=== PATIENT | male | born 1935 | race Caucasian/White ===

== ENCOUNTER 2017-12-07 11:43 | Inpatient (IN) | payer OTHER ==
[2017-12-07 13:54] VITALS: BMI 27.8
--- NOTE | 2017-12-07 15:37 | CON.CARD ---
Consult Consult Specialty:: Cardiology Referred by:: Admission to Hospitalist service Reason for Consultation:: Hypertensive urgency and atrial flutter - History of Present Illness Chief Complaint: Management of hypertensive urgency History of Present Illness: Patient is an 82 year old male seen in the office for atrial flutter with RVR, in addition HTN. He was started on Metoprolol Tartrate, Eliquis and Losartan and eventually started on Amiodarone prior to scheduling him for PATRICE and synchronized cardioversion. He presents today to Endo suite for above intervention, however; was found to be extremely hypertensive at 180/130 mmHg. Procedure was cancelled and he was recommended to be admitted for further management of blood pressure and to reschedule cardioversion with PATRICE once blood pressure is stabilized. He complains of mild shortness of breath according to his . He denies chest pain or palpitations. He denies paroxysmal nocturnal dyspnea or orthopnea. He denies fever or chills. He denies nausea, vomiting, diarrhea or abdominal pain. He denies headache or lightheadedness. TTE in the office revealed moderately reduced LV systolic function (LVEF 35-40%), small to moderate pericardial effusion, mild LVH, severe LAD, moderate RAD, mildly dilated ascending aorta, mild to moderate MR, moderate TR, moderate pulmonary HTN. - History Source History Provided By: Patient, Medical Record Limitations to Obtaining History: No Limitations - Past Medical History Cardio/Vascular: Yes: AFIB (atrial flutter), HTN, Pulmonary Hypertension, Other (LV systolic dysfunction) - Past Surgical History Additional Surgical History: Rotator cuff surgery, shoulder surgery - Alcohol/Substance Use Hx Alcohol Use: Yes (social) - Smoking History Smoking history: Never smoked Home Medications - Allergies Allergies/Adverse Reactions: Allergies Allergy/AdvReac Type Severity Reaction Status Date / Time No Known Allergies Allergy Verified 12/07/17 13:58 - Home Medications Home Medications: Ambulatory Orders Amiodarone HCl 200 mg PO BID 12/07/17 Apixaban [Eliquis] 5 mg PO BID 12/07/17 Losartan Potassium 25 mg PO DAILY 12/07/17 Metoprolol Tartrate 100 mg PO BID 12/07/17 Family Disease History - Family Disease History Other Family History: Malignant neoplasm in urinary bladder Review of Systems - Review of Systems Constitutional: denies: Chills, Fever Cardiovascular: reports: Palpitations, Shortness of Breath. denies: Chest Pain Respiratory: reports: SOB. denies: Cough, Hemoptysis, Orthopnea, PND, SOB on Exertion Gastrointestinal: denies: Abdominal Pain, Constipation, Diarrhea, Melena, Nausea , Rectal Bleeding, Vomiting Musculoskeletal: denies: Joint Pain Neurological: denies: Dizziness, Headache, Seizure, Syncope Vital Signs: Vital Signs Temperature 98.4 F 12/07/17 12:36 Pulse Rate 108 H 12/07/17 12:36 Respiratory Rate 15 12/07/17 12:36 Blood Pressure 180/130 12/07/17 12:36 O2 Sat by Pulse Oximetry (%) 97 12/07/17 12:36 Eyes: Yes: PERRL HENT: Yes: Atraumatic Neck: Yes: Supple Respiratory: Yes: CTA Bilaterally Gastrointestinal: Yes: Normal Bowel Sounds, Soft. No: Tenderness Cardiovascular: Yes: Pulse Irregular JVD: No Carotid Bruit: No PMI: Non-Displaced Heart Sounds: Yes: S1, S2. No: Gallop Murmur: Yes: Systolic Murmur, Grade 1 Edema: No - Other Data Atrial flutter with RVR Echo: Other (TTE done in the office. See HPI) Problem List - Problems (1) Atrial flutter Code(s): I48.92 - UNSPECIFIED ATRIAL FLUTTER (2) Hypertensive urgency Code(s): I16.0 - HYPERTENSIVE URGENCY (3) Left ventricular systolic dysfunction Code(s): I51.9 - HEART DISEASE, UNSPECIFIED (4) Pericardial effusion Code(s): I31.3 - PERICARDIAL EFFUSION (NONINFLAMMATORY) (5) Mitral valve regurgitation Code(s): I34.0 - NONRHEUMATIC MITRAL (VALVE) INSUFFICIENCY (6) Tricuspid valve regurgitation Code(s): I07.1 - RHEUMATIC TRICUSPID INSUFFICIENCY (7) Pulmonary hypertension Code(s): I27.20 - PULMONARY HYPERTENSION, UNSPECIFIED Assessment/Plan 1. Atrial flutter with RVR 2. LV systolic dysfunction - tachycardia mediated, but CAD needs to be ruled out 3. HTN - urgency 4. Pulmonary HTN 5. Mitral valve and tricuspid valve regurgitation 6. Pericardial effusion, etiology unclear, possibly inflammatory PLAN: 1. Continue Metoprolol Tartrate 100 BID 2. Increase Losartan to 100 mg once a day 3. Continue Eliquis 5 BID 4. Continue Amiodarone 200 BID and then eventually once a day 5. Reschedule PATRICE and synchronized cardioversion tentatively tomorrow once BP is better controlled. Keep NPO 6. Eventually will need further cardiac work up including nuclear MPI +/- cardiac catheterization if LV systolic function does not improve with zoroastrian of sinus rhythm. All these can be done as outpatient. Further plans are to follow. Discussed with Dr. Darnell Gonzalez (resident) Ghulam Ramirez MD
[2017-12-07] MEDS ORDERED: LOSARTAN POTASSIUM 50 MG TABLET (FP) PO ONE (16:27)
[2017-12-07] MEDS ORDERED: METOPROLOL TARTRATE 5 MG/5 ML VIAL IVPUSH PRN ×3 (16:29→18:05)
[2017-12-07] MEDS ORDERED: METOPROLOL TARTRATE 5 MG/5 ML VIAL IVPUSH ONE (16:45)
--- NOTE | 2017-12-07 16:48 | HP ---
Admitting History and Physical - Primary Care Physician PCP: Dr. Dickens - Admission Chief Complaint: HTN History of Present Illness: 82 yo M h/o pulmonary HTN, aflutter, and HTN sent from Dr. Ramirez's office for cardioversion in the hospital. While in the hospital, patient was found to have elevated BP (180/130) with shortness of breath. Cardioversion was cancelled. Patient was found be in a-flutter with RVR in Dr. Ramirez's office last week. He was started on metoprolol, eliquis and losartan and eventually amiodarone. ECHO done at office showed reduced LV function (EF 35-40%) with small to moderate pericardial effusion, severe LAD, moderate RAD, moderate MR, TR and pulm. HTN. Denies chest pain, dizziness, n/v, exertional dyspnea, orthopnea, diarrhea, constipation, urinary symptom. History Source: Patient - Past Medical History Cardiovascular: Yes: AFIB (atrial flutter), HTN, Pulmonary Hypertension, Other ( LV systolic dysfunction) - Smoking History Smoking history: Never smoked - Alcohol/Substance Use Hx Alcohol Use: Yes (social) Home Medications - Allergies Allergies/Adverse Reactions: Allergies Allergy/AdvReac Type Severity Reaction Status Date / Time No Known Allergies Allergy Verified 12/07/17 13:58 - Home Medications Home Medications: Ambulatory Orders Amiodarone HCl 200 mg PO BID 12/07/17 Apixaban [Eliquis] 5 mg PO BID 12/07/17 Losartan Potassium 25 mg PO DAILY 12/07/17 Metoprolol Tartrate 100 mg PO BID 12/07/17 Family Disease History - Family Disease History Other Family History: Malignant neoplasm in urinary bladder Review of Systems - Review of Systems Constitutional: reports: No Symptoms Eyes: reports: No Symptoms HENT: reports: No Symptoms Neck: reports: No Symptoms Cardiovascular: reports: Palpitations, Shortness of Breath Respiratory: reports: No Symptoms Gastrointestinal: reports: No Symptoms Genitourinary: reports: No Symptoms Musculoskeletal: reports: No Symptoms Integumentary: reports: No Symptoms Neurological: reports: No Symptoms Physical Examination Vital Signs: Vital Signs Temperature 98.4 F 12/07/17 12:36 Pulse Rate 108 H 12/07/17 15:36 Respiratory Rate 20 12/07/17 15:36 Blood Pressure 178/117 12/07/17 15:36 O2 Sat by Pulse Oximetry (%) 95 12/07/17 15:36 Constitutional: Yes: Well Nourished, No Distress, Calm Eyes: Yes: Conjunctiva Clear, EOM Intact HENT: Yes: Atraumatic, Normocephalic Neck: Yes: Supple, Trachea Midline Cardiovascular: Yes: Tachycardia, Pulse Irregular, S1, S2. No: JVD Respiratory: Yes: CTA Bilaterally Gastrointestinal: Yes: Normal Bowel Sounds, Abdomen, Obese, Distention. No: Tenderness Edema: Yes Edema: LLE: 2+, RLE: 2+ Peripheral Pulses WNL: Yes Neurological: Yes: Alert, Oriented, Cran Nerves II-XII Intact Assessment/Plan 82 yo M admitted to telemetry for a-flutter with RVR and hypertensive urgency. A-flutter with RVR - cont. amiodarone 200mg BID, eliquis 5mg BID, and lopressor 100mg PO BID - will atempt cardioversion once BP stabilizes - cardiac monitoring - repeat EKG in the AM Hypertensive urgency - increase losartan 25mg to 100mg daily - cont. lopressor 100mg BID - lopressor 5mg IVPUSH PRN with parameters - stat labs dvt ppx: on eliquis Darnell Carlos [id number] [phone] Visit type - Emergency Visit Emergency Visit: No - New Patient This patient is new to me today: Yes Date on this admission: 12/08/17 - Critical Care Critical Care patient: No Hospitalist Screening - Colonoscopy Questionnaire Colonoscopy Questionnaire: Colonoscopy Questionnaire - Patient: 50 - 75 years old and never had a screening colonoscopy: Unknown History of colon or rectal polyps, or CA: Unknown History of IBD, Crohn's disease or UC: Unknown History of abdominal radiation therapy as a child: Unknown - Relative: 1 with colon or rectal CA, or polyps at age 60 or younger: Unknown Colon or rectal CA diagnosed at age 45 or younger: Unknown Multiple relatives with colon or rectal CA: Unknown - Outcome: Screening Result: Negative Screen
--- NOTE | 2017-12-07 18:08 | PN ---
Teaching Attending Note Name of Resident: Darnell Gonzalez ATTENDING PHYSICIAN STATEMENT I saw and evaluated the patient. I reviewed the resident's note and discussed the case with the resident. I agree with the resident's findings and plan as documented with exceptions below. SUBJECTIVE: 82 yom not seen a physician in 3 years, recently resumed follow up and newly diagnosed with HTN, Atrial flutter with RVR, started on metoprolol/eliquis/ amiodarone/losartan, was admitted for elective cardioversion today but noted with BP 180s/130s, so procedure held and to be reattempted with improved BP control. Patient reports recent exertional weakness/dyspnea but no chest pain. Reports increased dyspnea since started on amiodarone. Currently with no complaints. 12 point ROS done, neg except above. OBJECTIVE: Vital Signs Period Temp Pulse Resp BP Sys/Cardenas Pulse Ox Last 24 Hr 98.4 F 108-111 15-20 137-178/28-117 95-97 Intake & Output 12/04/17 12/05/17 12/06/17 12/07/17 23:59 23:59 23:59 23:59 Weight 180 lb GENERAL: Awake, alert, and fully oriented, in no acute distress. HEAD: Normal with no signs of trauma. EYES: Pupils equal, round and reactive to light, extraocular movements intact, sclera anicteric, conjunctiva clear. No lid lag. EARS, NOSE, THROAT: Ears normal, nares patent, oropharynx clear without exudates. Moist mucous membranes. NECK: soft, supple, no JVD LUNGS: Breath sounds equal, clear to auscultation bilaterally. No wheezes, and no crackles. No accessory muscle use. HEART: S1S2 irregular ABDOMEN: Soft, nontender, not distended, normoactive bowel sounds, no guarding, no rebound, no masses. No hepatomegaly or splenomegaly appreciated MUSCULOSKELETAL: Normal range of motion at all joints. No bony deformities or tenderness. No CVA tenderness. UPPER EXTREMITIES: 2+ pulses, warm, well-perfused. No cyanosis. No clubbing. No peripheral edema. LOWER EXTREMITIES: 2+ pulses, warm, well-perfused. No calf tenderness. No peripheral edema. NEUROLOGICAL: Cranial nerves II-XII intact. Normal speech. Gait deferred PSYCHIATRIC: Cooperative. Good eye contact. Appropriate mood and affect. SKIN: Warm, dry, normal turgor, no rashes or lesions noted, normal capillary refill. EKG Atrial flutter 1:1, ventricular rate 104 ASSESSMENT AND PLAN: 82 yom with Hypertensive urgency and atrial flutter with RVR. -Atrial flutter with RVR -Hypertensive urgency Plan: Cardiology consult dr. Ramirez. INcrease losartan to 100 mg daily. Continue metoprolol, amiodarone, eliquis. Metoprolol 5 mg IV prn for SBP > 170 or DBP > 110. Telemetry. Routine labs DVTPPX on eliquis NPO after midnight. Dispo pending BP improvement and cardioversion plans. Plan discussed with patient in detail,all questions answered. Total admit time 65 min.
[2017-12-07 19:57] LABS: HEMATOCRIT 44.7 % (35.4-49); HEMOGLOBIN 14.5 GM/dL (11.7-16.9); MCH 27.7 pg (25.7-33.7); MCHC 32.4 g/dl (32.0-35.9); MEAN CELL VOLUME 85.5 fl (80-96); MEAN PLT VOLUME 8.9 fl (7.5-11.1); PLATELET COUNT 212 K/MM3 (134-434); RBC 5.23 M/mm3 (4.00-5.60); RDW 15.3 % (11.9-15.9)
[2017-12-07] MEDS ORDERED: METOPROLOL TARTRATE 50 MG TABLET (FP) PO SCH ×2 (20:01→22:00)
[2017-12-07 20:14] LABS: INR 1.53 (0.82-1.09); PROTHROMBIN TIME (PATIENT) 17.3 SEC (9.7-13.0)
[2017-12-07 20:17] LABS: ACTIVATED PTT 35.1 SECONDS (25.2-36.5)
[2017-12-07 20:22] LABS: ALBUMIN 3.6 g/dl (3.4-5.0); ANION GAP 5 (8-16); BILIRUBIN,TOTAL 0.7 mg/dL (0.2-1.0); BLOOD UREA NITROGEN 26 mg/dL (7-18); CALCIUM 8.6 mg/dL (8.5-10.1); CHLORIDE 112 mmol/L (98-107); CO2 25 mmol/L (21-32); CREATININE 1.3 mg/dL (0.7-1.3); GLUCOSE,RANDOM 119 mg/dL (74-106); MAGNESIUM 2.2 mg/dL (1.8-2.4); PHOSPHOROUS 3.2 mg/dL (2.5-4.9); POTASSIUM 4.3 mmol/L (3.5-5.1); SGOT/AST 17 U/L (15-37); SGPT/ALT 35 U/L (12-78); SODIUM 142 mmol/L (136-145); TOT PROT 6.1 g/dl (6.4-8.2)
[2017-12-07 20:23] LABS: ALK PHOS 65 U/L (45-117)
[2017-12-07] MEDS: METOPROLOL TARTRATE 50 MG TABLET (FP) PO SCH (21:18)
[2017-12-07] MEDS: AMIODARONE HCL 200 MG TABLET (FP) PO SCH (21:18)
[2017-12-07] MEDS: APIXABAN 5 MG TABLET PO SCH (21:18)
[2017-12-07] MEDS: LOSARTAN POTASSIUM 50 MG TABLET (FP) PO SCH (21:19)
--- NOTE | 2017-12-07 21:42 | EKG ---
Test Reason : Blood Pressure : / mmHG Vent. Rate : 107 BPM Atrial Rate : 214 BPM P-R Int : 000 ms QRS Dur : 088 ms QT Int : 316 ms P-R-T Axes : 073 092 165 degrees QTc Int : 421 ms ATRIAL FLUTTER WITH 2:1 A-V CONDUCTION RIGHTWARD AXIS NONSPECIFIC ST AND T WAVE ABNORMALITY ABNORMAL ECG NO PREVIOUS ECGS AVAILABLE Confirmed by MD ZANDER, NATHAN ([id number]) on 12/07/2017 9:42:00 PM Referred By: Lakshmi HULL Confirmed By:NATHAN FERMIN MD
[2017-12-08 06:27] LABS: HEMATOCRIT 43.4 % (35.4-49); HEMOGLOBIN 14.4 GM/dL (11.7-16.9); MCH 28.3 pg (25.7-33.7); MCHC 33.1 g/dl (32.0-35.9); MEAN CELL VOLUME 85.5 fl (80-96); MEAN PLT VOLUME 8.8 fl (7.5-11.1); PLATELET COUNT 189 K/MM3 (134-434); RBC 5.08 M/mm3 (4.00-5.60); RDW 15.3 % (11.9-15.9); WHITE BLOOD COUNT 10.7 K/mm3 (4.0-10.0)
[2017-12-08 07:17] LABS: ALBUMIN 3.5 g/dl (3.4-5.0); ANION GAP 5 (8-16); BLOOD UREA NITROGEN 25 mg/dL (7-18); CALCIUM 8.7 mg/dL (8.5-10.1); CHLORIDE 108 mmol/L (98-107); CHOLESTEROL 147 mg/dL (50-200); CO2 28 mmol/L (21-32); CREATININE 1.3 mg/dL (0.7-1.3); GLUCOSE,RANDOM 96 mg/dL (74-106); MAGNESIUM 2.1 mg/dL (1.8-2.4); PHOSPHOROUS 3.3 mg/dL (2.5-4.9); POTASSIUM 4.7 mmol/L (3.5-5.1); SGOT/AST 19 U/L (15-37); SGPT/ALT 34 U/L (12-78); SODIUM 141 mmol/L (136-145); TRIGLYCERIDES 79 mg/dL (35-160)
[2017-12-08 07:19] LABS: ALK PHOS 64 U/L (45-117); BILIRUBIN,TOTAL 0.8 mg/dL (0.2-1.0); HDL CHOLESTEROL 37 mg/dL (40-60)
[2017-12-08] MEDS: LOSARTAN POTASSIUM 50 MG TABLET (FP) PO SCH (09:09)
[2017-12-08] MEDS: METOPROLOL TARTRATE 50 MG TABLET (FP) PO SCH ×2 (09:09→21:51)
--- NOTE | 2017-12-08 09:36 | PN ---
Progress Note, Physician History of Present Illness: BP improved, denies chest pain, dyspnea, palpitations. Await PATRICE-guided DCCV. - Current Medication List Current Medications: Active Medications Amiodarone HCl (Cordarone -) 200 mg PO BID [facility] Last Admin: 12/07/17 21:18 Dose: 200 mg Apixaban (Eliquis -) 5 mg PO BID [facility] Last Admin: 12/07/17 21:18 Dose: 5 mg Losartan Potassium (Cozaar -) 100 mg PO DAILY [facility] Last Admin: 12/08/17 09:09 Dose: 100 mg Metoprolol Tartrate (Lopressor -) 100 mg PO BID [facility] Last Admin: 12/08/17 09:09 Dose: 100 mg Metoprolol Tartrate (Lopressor Injection -) 5 mg IVPUSH Q4H PRN PRN Reason: HYPERTENSION Last Admin: 12/08/17 06:22 Dose: 5 mg - Objective Vital Signs: Vital Signs Temperature 97.8 F 12/08/17 06:00 Pulse Rate 108 H 12/08/17 06:22 Respiratory Rate 20 12/08/17 07:46 Blood Pressure 149/114 12/08/17 06:22 O2 Sat by Pulse Oximetry (%) 96 12/08/17 07:46 Constitutional: Yes: No Distress, Calm Neck: Yes: Supple Cardiovascular: Yes: Pulse Irregular, Murmur (1/6 SM) Respiratory: Yes: Regular, CTA Bilaterally Gastrointestinal: Yes: Normal Bowel Sounds, Soft Edema: No Labs: CBC, BMP 12/08/17 05:30 12/08/17 05:30 INR, PTT INR 1.53 (0.82-1.09) H 12/07/17 19:35 - ....Imaging EKG: Report Reviewed (Aflutter) Problem List - Problems (1) Chronic kidney disease Code(s): N18.9 - CHRONIC KIDNEY DISEASE, UNSPECIFIED Qualifiers: Chronic kidney disease stage: stage 2 (mild) Qualified Code(s): N18.2 - Chronic kidney disease, stage 2 (mild) (2) Atrial flutter Code(s): I48.92 - UNSPECIFIED ATRIAL FLUTTER Qualifiers: Atrial flutter type: atypical Qualified Code(s): I48.4 - Atypical atrial flutter (3) Hypertensive urgency Code(s): I16.0 - HYPERTENSIVE URGENCY (4) Left ventricular systolic dysfunction Code(s): I51.9 - HEART DISEASE, UNSPECIFIED (5) Mitral valve regurgitation Code(s): I34.0 - NONRHEUMATIC MITRAL (VALVE) INSUFFICIENCY Qualifiers: Cardiac valve disease etiology: nonrheumatic Qualified Code(s): I34.0 - Nonrheumatic mitral (valve) insufficiency (6) Pericardial effusion Code(s): I31.3 - PERICARDIAL EFFUSION (NONINFLAMMATORY) (7) Pulmonary hypertension Code(s): I27.20 - PULMONARY HYPERTENSION, UNSPECIFIED (8) Tricuspid valve regurgitation Code(s): I07.1 - RHEUMATIC TRICUSPID INSUFFICIENCY Qualifiers: Cardiac valve disease etiology: nonrheumatic Qualified Code(s): I36.1 - Nonrheumatic tricuspid (valve) insufficiency Assessment/Plan TTE in the office revealed moderately reduced LV systolic function (LVEF 35-40%) , small to moderate pericardial effusion, mild LVH, severe LAD, moderate RAD, mildly dilated ascending aorta, mild to moderate MR, moderate TR, moderate pulmonary HTN 1. Atrial flutter with RVR 2. LV systolic dysfunction - tachycardia mediated, but CAD needs to be ruled out 3. HTN - urgency improved 4. Pulmonary HTN 5. Mitral valve and tricuspid valve regurgitation 6. Pericardial effusion, etiology unclear, possibly inflammatory 7. CKD PLAN: 1. Continue Metoprolol Tartrate 100 BID 2. Continue Losartan 100 mg once a day 3. Continue Eliquis 5 BID 4. Continue Amiodarone 200 BID and then eventually once a day 5. Plan for PATRICE and synchronized cardioversion today as BP is better controlled. Keep NPO 6. Eventually will need further cardiac work up including nuclear MPI +/- cardiac catheterization if LV systolic function does not improve with denominational of sinus rhythm. All these can be done as outpatient.
--- NOTE | 2017-12-08 11:06 | EKG ---
Test Reason : Blood Pressure : / mmHG Vent. Rate : 109 BPM Atrial Rate : 218 BPM P-R Int : 000 ms QRS Dur : 090 ms QT Int : 316 ms P-R-T Axes : 078 096 162 degrees QTc Int : 425 ms ATRIAL FLUTTER WITH 2:1 A-V CONDUCTION RIGHTWARD AXIS ABNORMAL ECG WHEN COMPARED WITH ECG OF 07-DEC-2017 14:25, NO SIGNIFICANT CHANGE WAS FOUND Confirmed by LILA CONDON, JENS ([id number]) on 12/08/2017 11:06:01 AM Referred By: BRAYAN YU DR Confirmed By:JENS SHARP MD
--- NOTE | 2017-12-08 13:01 | PN ---
Teaching Attending Note Name of Resident: Johnathan Conteh ATTENDING PHYSICIAN STATEMENT I saw and evaluated the patient. I reviewed the resident's note and discussed the case with the resident. I agree with the resident's findings and plan as documented with exceptions below. SUBJECTIVE: Patient seen and examined. No new chest pain, dizziness, dyspnea, palpitations, headache or new concerns. OBJECTIVE: Vital Signs Period Temp Pulse Resp BP Sys/Cardenas Pulse Ox Last 24 Hr 97.4 F-98.9 F 104-113 18-20 137-178/91-117 95-96 Intake & Output 12/05/17 12/06/17 12/07/17 12/08/17 23:59 23:59 23:59 23:59 Weight 180 lb General: sitting in chair, no acute distress CVS;S1S2 tachycardic Chest: CTAB, no rales or wheezing Extremities: no edema Home Medications Medication Instructions Recorded Amiodarone HCl 200 mg PO BID 12/07/17 Apixaban [Eliquis] 5 mg PO BID 12/07/17 Losartan Potassium 25 mg PO DAILY 12/07/17 Metoprolol Tartrate 100 mg PO BID 12/07/17 Active Medications Amiodarone HCl (Cordarone -) 200 mg PO BID [facility] Last Admin: 12/07/17 21:18 Dose: 200 mg Apixaban (Eliquis -) 5 mg PO BID [facility] Last Admin: 12/07/17 21:18 Dose: 5 mg Losartan Potassium (Cozaar -) 100 mg PO DAILY [facility] Last Admin: 12/08/17 09:09 Dose: 100 mg Metoprolol Tartrate (Lopressor -) 100 mg PO BID [facility] Last Admin: 12/08/17 09:09 Dose: 100 mg Metoprolol Tartrate (Lopressor Injection -) 5 mg IVPUSH Q4H PRN PRN Reason: HYPERTENSION Last Admin: 12/08/17 06:22 Dose: 5 mg Laboratory Results - last 24 hr 12/07/17 12/07/17 12/07/17 19:35 19:35 19:35 WBC 11.0 H RBC 5.23 Hgb 14.5 Hct 44.7 MCV 85.5 MCH 27.7 MCHC 32.4 RDW 15.3 Plt Count 212 MPV 8.9 PT with INR 17.30 H INR 1.53 H PTT (Actin FS) 35.1 Sodium 142 Potassium 4.3 Chloride 112 H Carbon Dioxide 25 Anion Gap 5 L BUN 26 H Creatinine 1.3 Creat Clearance w eGFR 52.98 Random Glucose 119 H Calcium 8.6 Phosphorus 3.2 Magnesium 2.2 Total Bilirubin 0.7 AST 17 ALT 35 Alkaline Phosphatase 65 Total Protein 6.1 L Albumin 3.6 Triglycerides Cholesterol Total LDL Cholesterol HDL Cholesterol 12/08/17 12/08/17 05:30 05:30 WBC 10.7 H RBC 5.08 Hgb 14.4 Hct 43.4 MCV 85.5 MCH 28.3 MCHC 33.1 RDW 15.3 Plt Count 189 MPV 8.8 PT with INR INR PTT (Actin FS) Sodium 141 Potassium 4.7 Chloride 108 H Carbon Dioxide 28 Anion Gap 5 L BUN 25 H Creatinine 1.3 Creat Clearance w eGFR 52.98 Random Glucose 96 Calcium 8.7 Phosphorus 3.3 Magnesium 2.1 Total Bilirubin 0.8 AST 19 ALT 34 Alkaline Phosphatase 64 Total Protein 6.0 L Albumin 3.5 Triglycerides 79 Cholesterol 147 Total LDL Cholesterol 101 H HDL Cholesterol 37 L ASSESSMENT AND PLAN: 82 yom with Hypertensive urgency and atrial flutter with RVR. -Atrial flutter with RVR -Hypertensive urgency Plan: BP improved, continue losartan, metoprolol. Metoprolol IV prn. Cardiology consult noted. Awaiting PATRICE with DCCV. DVTPPX on eliquis Dispo pending DCCV and clinically course, likely in 24 hours if no concerns. Plan discussed with patient in detail,all questions answered.
[2017-12-08] MEDS ORDERED: LIDOCAINE VISCOUS 2% ORAL/TOP 20 ML UNIT-DOSE CUP ONE (13:12)
[2017-12-08] MEDS ORDERED: LIDOCAINE HCL/PF 2% SDV 5ML VIAL ONE (13:15)
[2017-12-08] MEDS ORDERED: ETOMIDATE 20 MG/10 ML AMPUL IVPUSH ONE (13:15)
[2017-12-08] MEDS ORDERED: PROPOFOL 20 ML ONE (13:15)
[2017-12-08] MEDS ORDERED: LIDOCAINE VISCOUS 2% ORAL/TOP 20 ML UNIT-DOSE CUP MM ONE (13:41)
--- NOTE | 2017-12-08 14:25 | ECHO ---
Name: BINA, PHAM Exam:Transesophageal Echocardiogram Study Date: 12/08/2017 01:38 PM Reason For Study: Source of Emboli Height: 67 in Weight: 180 lb BSA: 1.9 m2 Procedure: A 2D transesophageal echocardiogram with Doppler and color flow Doppler was performed. Informed conse nt for Transesophageal Echocardiogram, and use of a contrast agent as needed, was obtained prior to the proc edure. The patient was brought to the endoscopy suite in a fasting state. An intravenous line was placed. A topical anesthetic agent was used for oropharangeal anesthesia. A bite block was inserted. A multifrequency, multiplane transesopheageal echocardiographic endoscope was inserted and manipulated in the standard fashion to achieve multiplane views. The usual views were obtained; basal, mid-esophageal, transgastric and a ortic views. The patient's vital signs, including blood pressure, heart rate, pulse oximetry and cardiac rh ythm were monitored throughout the procedure and remained stable. The patient tolerated the procedure well with out evidence of orophangeal or esophageal trauma. There were no complications. The patient was in atrial flutter during the exam. Left Ventricle The left ventricle is grossly normal size. Left ventricular systolic function is mild to moderately r educed. Ejection Fraction = 40-45%. There is mild to moderate global hypokinesis of the left ventricle. Atria The left atrium is moderately dilated. No thrombus is detected in the left atrial appendage. No left atrial mass or thrombus visualized. The right atrium is mild to moderately dilated. A patent foramen ovale i s present. Color doppler suggests left to right interatrial shunt. Injection of contrast documented an interatrial shunt. Mitral Valve There is mild mitral annular calcification. Probable moderate to severe mitral valve regurgitation wi th 2 jets, one central and the other eccentric hugging the anterior mitral valve leaflet along the interat rial septum. Pulmonary vein Doppler reveals blunted systolic flow. Tricuspid Valve The tricuspid valve is not well visualized, but is grossly normal. There is moderate tricuspid regurg itation. Aortic Valve The aortic valve is normal in structure and function. Mild aortic regurgitation. Pulmonic Valve The pulmonic valve is not well seen, but is grossly normal. There is no pulmonic valvular regurgitati on. Great Vessels Diffuse atherosclerotic plaques are seen in descending thoracic aorta and aortic arch. Pericardium/Pluera Small to moderate pericardial effusion, probably loculated. Interpretation Summary The left ventricle is grossly normal size. Left ventricular systolic function is mild to moderately reduced. Ejection Fraction = 40-45%. There is mild to moderate global hypokinesis of the left ventricle. The left atrium is moderately dilated. No thrombus is detected in the left atrial appendage. No left atrial mass or thrombus visualized. The right atrium is mild to moderately dilated. A patent foramen ovale is present. Color doppler suggests left to right interatrial shunt. Injection of contrast documented an interatrial shunt. There is mild mitral annular calcification. Probable moderate to severe mitral valve regurgitation with 2 jets, one central and the other eccentr ic hugging the anterior mitral valve leaflet along the interatrial septum. Pulmonary vein Doppler reveal s blunted systolic flow. There is moderate tricuspid regurgitation. Mild aortic regurgitation. Diffuse atherosclerotic plaques are seen in descending thoracic aorta and aortic arch Small to moderate pericardial effusion, probably loculated Proceed with synchronized cardioversion Ghulam Ramirez MD 12/08/2017 02:24 PM
[2017-12-08] MEDS: APIXABAN 5 MG TABLET PO SCH ×2 (15:19→21:51)
[2017-12-08] MEDS: AMIODARONE HCL 200 MG TABLET (FP) PO SCH (15:19)
--- NOTE | 2017-12-08 16:11 | EKG ---
Test Reason : Blood Pressure : / mmHG Vent. Rate : 057 BPM Atrial Rate : 057 BPM P-R Int : 146 ms QRS Dur : 088 ms QT Int : 472 ms P-R-T Axes : 075 097 125 degrees QTc Int : 459 ms SINUS BRADYCARDIA POSSIBLE LEFT ATRIAL ENLARGEMENT RIGHTWARD AXIS ABNORMAL ECG WHEN COMPARED WITH ECG OF 08-DEC-2017 08:44, SINUS RHYTHM HAS REPLACED ATRIAL FLUTTER VENT. RATE HAS DECREASED BY [address] NO LONGER DEPRESSED IN INFERIOR LEADS T WAVE INVERSION MORE EVIDENT IN ANTERIOR LEADS Confirmed by JENS SHARP MD ([id number]) on 12/08/2017 4:11:14 PM Referred By: PADILLA TREVINO Confirmed By:JENS SHARP MD
--- NOTE | 2017-12-08 17:22 | PN ---
Progress Note (short form) - Note Progress Note: PATRICE/synchronized cardioversion: Please see PATRICE report on chart Successful cardioversion to sinus with 120J. Patient tolerated procedure Continue current medication except Amiodarone to be reduced to 200 mg once a day. Losartan can be given 50 mg once a day. Continue Eliquis and Metoprolol. Patient may be discharged home and be followed as outpatient Ghulam Ramirez MD Problem List - Problems (1) Atrial flutter Code(s): I48.92 - UNSPECIFIED ATRIAL FLUTTER Qualifiers: Atrial flutter type: atypical Qualified Code(s): I48.4 - Atypical atrial flutter (2) Hypertensive urgency Code(s): I16.0 - HYPERTENSIVE URGENCY (3) Left ventricular systolic dysfunction Code(s): I51.9 - HEART DISEASE, UNSPECIFIED (4) Pericardial effusion Code(s): I31.3 - PERICARDIAL EFFUSION (NONINFLAMMATORY) (5) Mitral valve regurgitation Code(s): I34.0 - NONRHEUMATIC MITRAL (VALVE) INSUFFICIENCY Qualifiers: Cardiac valve disease etiology: nonrheumatic Qualified Code(s): I34.0 - Nonrheumatic mitral (valve) insufficiency (6) Tricuspid valve regurgitation Code(s): I07.1 - RHEUMATIC TRICUSPID INSUFFICIENCY Qualifiers: Cardiac valve disease etiology: nonrheumatic Qualified Code(s): I36.1 - Nonrheumatic tricuspid (valve) insufficiency (7) Pulmonary hypertension Code(s): I27.20 - PULMONARY HYPERTENSION, UNSPECIFIED
--- NOTE | 2017-12-08 19:07 | PN ---
Physical Exam: SUBJECTIVE: Patient seen and examined. Pt. had no acute events overnight. No complaints. OBJECTIVE: Vital Signs Period Temp Pulse Resp BP Sys/Cardenas Pulse Ox Last 24 Hr 97.2 F-98.8 F 57-111 12-21 112-152/62-114 96-100 GENERAL: The patient is awake, alert, and fully oriented, in no acute distress. LUNGS: Breath sounds equal, clear to auscultation bilaterally, no wheezes, no crackles, no accessory muscle use. HEART: fast rate and rhythm, S1, S2 without murmur, rub or gallop. ABDOMEN: Soft, nontender, nondistended, normoactive bowel sounds, no guarding EXTREMITIES:warm, well-perfused, no edema, no calf pain. PSYCH: Normal mood, normal affect. SKIN: Warm, dry, normal turgor Laboratory Results - last 24 hr 12/07/17 12/07/17 12/07/17 19:35 19:35 19:35 WBC 11.0 H RBC 5.23 Hgb 14.5 Hct 44.7 MCV 85.5 MCH 27.7 MCHC 32.4 RDW 15.3 Plt Count 212 MPV 8.9 PT with INR 17.30 H INR 1.53 H PTT (Actin FS) 35.1 Sodium 142 Potassium 4.3 Chloride 112 H Carbon Dioxide 25 Anion Gap 5 L BUN 26 H Creatinine 1.3 Creat Clearance w eGFR 52.98 Random Glucose 119 H Calcium 8.6 Phosphorus 3.2 Magnesium 2.2 Total Bilirubin 0.7 AST 17 ALT 35 Alkaline Phosphatase 65 Total Protein 6.1 L Albumin 3.6 Triglycerides Cholesterol Total LDL Cholesterol HDL Cholesterol 12/08/17 12/08/17 05:30 05:30 WBC 10.7 H RBC 5.08 Hgb 14.4 Hct 43.4 MCV 85.5 MCH 28.3 MCHC 33.1 RDW 15.3 Plt Count 189 MPV 8.8 PT with INR INR PTT (Actin FS) Sodium 141 Potassium 4.7 Chloride 108 H Carbon Dioxide 28 Anion Gap 5 L BUN 25 H Creatinine 1.3 Creat Clearance w eGFR 52.98 Random Glucose 96 Calcium 8.7 Phosphorus 3.3 Magnesium 2.1 Total Bilirubin 0.8 AST 19 ALT 34 Alkaline Phosphatase 64 Total Protein 6.0 L Albumin 3.5 Triglycerides 79 Cholesterol 147 Total LDL Cholesterol 101 H HDL Cholesterol 37 L Active Medications Current Medications Amiodarone HCl (Cordarone -) 200 mg PO DAILY [facility] Apixaban (Eliquis -) 5 mg PO BID [facility] Last Admin: 12/08/17 15:19 Dose: 5 mg Losartan Potassium (Cozaar -) 50 mg PO DAILY [facility] Metoprolol Tartrate (Lopressor -) 100 mg PO BID [facility] Last Admin: 12/08/17 09:09 Dose: 100 mg Metoprolol Tartrate (Lopressor Injection -) 5 mg IVPUSH Q4H PRN PRN Reason: HYPERTENSION Last Admin: 12/08/17 06:22 Dose: 5 mg PATRICE(12/08/17): Mod-severe MR, L->R intraatrial shunt d/t PFO, mod. TR, mild AR, No thrombus in atrial appendage. ASSESSMENT/PLAN: 82 yo M admitted to telemetry for a-flutter with RVR and hypertensive urgency. #A-flutter with RVR - cont. amiodarone 200mg BID, eliquis 5mg BID, and lopressor 100mg PO BID - Pt. underwent PATRICE and cardioversion (12/08/17) - succesful cardioversion. Pt. is in nsr - cardiac monitoring overnight #Hypertensive urgency - increase losartan 25mg to 100mg daily - cont. lopressor 100mg BID - lopressor 5mg IVPUSH PRN with parameters - resolved #Dvt ppx: on eliquis #Dispo -home pending successful night of NSRl Visit type - Emergency Visit Emergency Visit: Yes ED Registration Date: 12/07/17 Care time: The patient presented to the Emergency Department on the above date and was hospitalized for further evaluation of their emergent condition. - New Patient This patient is new to me today: Yes Date on this admission: 12/08/17 - Critical Care Critical Care patient: No - Discharge Referral Referred to [facility].C[facility] No
--- NOTE | 2017-12-09 05:17 | DS ---
Physical Exam: SUBJECTIVE: Patient seen and examined. No acute events overnight. No complaints other than IV site infiltration being a little swollen. OBJECTIVE: Vital Signs Period Temp Pulse Resp BP Sys/Cardenas Pulse Ox Last 24 Hr 96.7 F-97.9 F 57-108 12-21 112-149/62-114 95-100 PHYSICAL EXAM GENERAL: The patient is awake, alert, and fully oriented, walking around in no acute distress. LUNGS: Breath sounds equal, clear to auscultation bilaterally, no wheezes, no crackles, no accessory muscle use. HEART: Regular rate and rhythm, S1, S2 without murmur. ABDOMEN: Soft, nontender, nondistended, normoactive bowel sounds, no guarding, no rebound, no hepatosplenomegaly, no masses. EXTREMITIES: warm, well-perfused, no calf tenderness, no leg edema, mild tenderness around infiltration site on right hand.. NEUROLOGICAL: Normal speech PSYCH: Normal mood, normal affect. SKIN: Warm, dry, normal turgor LABS Laboratory Results - last 24 hr 12/08/17 12/08/17 05:30 05:30 WBC 10.7 H RBC 5.08 Hgb 14.4 Hct 43.4 MCV 85.5 MCH 28.3 MCHC 33.1 RDW 15.3 Plt Count 189 MPV 8.8 Sodium 141 Potassium 4.7 Chloride 108 H Carbon Dioxide 28 Anion Gap 5 L BUN 25 H Creatinine 1.3 Creat Clearance w eGFR 52.98 Random Glucose 96 Calcium 8.7 Phosphorus 3.3 Magnesium 2.1 Total Bilirubin 0.8 AST 19 ALT 34 Alkaline Phosphatase 64 Total Protein 6.0 L Albumin 3.5 Triglycerides 79 Cholesterol 147 Total LDL Cholesterol 101 H HDL Cholesterol 37 L HOSPITAL COURSE: Date of Admission:12/07/17 Date of Discharge: 12/09/17 Pre-hospital:82 yo M h/o pulmonary HTN, aflutter, and HTN sent from Dr. Ramirez's office for cardioversion in the hospital. While in the hospital, patient was found to have elevated BP (180/130) with shortness of breath. Cardioversion was cancelled. Patient was found be in a-flutter with RVR in Dr. Ramirez's office last week. He was started on metoprolol, eliquis and losartan and eventually amiodarone. ECHO done at office showed reduced LV function (EF 35-40%) with small to moderate pericardial effusion, severe LAD, moderate RAD, moderate MR, TR and pulm. HTN. Denies chest pain, dizziness, n/v, exertional dyspnea, orthopnea, diarrhea, constipation, urinary symptoms. Hospital: Pt. was admitted for A. Flutter and hypertensive emergency, given IV Metoprolol for rate control. Pt then underwent PATRICE which showed: Mod-severe MR, L->R intraatrial shunt d/t PFO, mod. TR, mild AR, No thrombus in atrial appendage. Pt. was then scheduled and successfully completed cardioversion (DCCV ). Pt. endorsed symptoms resolved. Hospital course was discussed and agreed upon with Pt. and consulting cardiologists. Risks and benefits were explained to and relayed back from the pt. Pt was medically cleared for discharge. Minutes to complete discharge: 35 Discharge Summary Reason For Visit: ATRIAL FLUTTER,HYPRETENSIVE URGENCY,A FIB,PERIC EF Current Active Problems Atrial flutter (Acute) Chronic kidney disease (Acute) Hypertensive urgency (Acute) Left ventricular systolic dysfunction (Acute) Mitral valve regurgitation (Acute) Pericardial effusion (Acute) Pulmonary hypertension (Acute) Tricuspid valve regurgitation (Acute) Condition: Good - Instructions Diet, Activity, Other Instructions: Infiltrated IV site at anterior right hand - pleas use warm soaks frequently. 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 Follow up with your primary care doctor in one week If you think your symptoms are not getting better, with fainting attacks, shortness of breath, chest pain or palpitations, please return to the emergency room Referrals: Ghulam Ramirez MD [Staff Physician] - 1 Week Disposition: HOME - Home Medications Comprehensive Discharge Medication List: Ambulatory Orders Amiodarone HCl 200 mg PO BID 12/07/17 Apixaban [Eliquis] 5 mg PO BID 12/07/17 Losartan Potassium 25 mg PO DAILY 12/07/17 Metoprolol Tartrate 100 mg PO BID 12/07/17 This patient is new to me today: No Emergency Visit: Yes ED Registration Date: 12/07/17 Care time: The patient presented to the Emergency Department on the above date and was hospitalized for further evaluation of their emergent condition. Critical Care patient: No - Discharge Referral Referred to [facility] No
--- NOTE | 2017-12-09 07:26 | PN ---
Teaching Attending Note Name of Resident: Johnathan Conteh ATTENDING PHYSICIAN STATEMENT I saw and evaluated the patient. I reviewed the resident's note and discussed the case with the resident. I agree with the resident's findings and plan as documented with exceptions below. SUBJECTIVE: Patient seen and examined. No events or complaints overnight. OBJECTIVE: Vital Signs Period Temp Pulse Resp BP Sys/Cardenas Pulse Ox Last 24 Hr 96.7 F-97.9 F 57-104 12-21 112-151/62-95 95-100 Intake & Output 12/06/17 12/07/17 12/08/17 12/09/17 23:59 23:59 23:59 23:59 Intake Total 300 Balance 300 Weight 180 lb General: sitting in bed in no acute distress Chest: CTAB, no rales or wheezing CVS:S1s2 regular Abdomen:Soft, NT Extremities: no edema Telemetry NSR, no events (artifacts noted) ASSESSMENT AND PLAN: 82 yom with atrial flutter with RVR and HTN urgency -Hypertensive urgency -Atrial flutter with RVR Plan: BP stable, In NSR, s/p cardioversion. Losartan increased to 50 mg daily and amiodarone changed to 200 mg daily. D/c home today, patient as appt with Dr. Ramirez on 12/15, Medication changes and d/c plan and instructions discussed in detail with patient and all questions answered.
[2017-12-09] MEDS: APIXABAN 5 MG TABLET PO SCH (09:04)
[2017-12-09] MEDS: METOPROLOL TARTRATE 50 MG TABLET (FP) PO SCH (09:04)
[2017-12-09] MEDS ORDERED: AMIODARONE HCL 200 MG TABLET (FP) PO SCH (10:00)
[2017-12-09] MEDS ORDERED: LOSARTAN POTASSIUM 50 MG TABLET (FP) PO SCH (10:00)
[2017-12-09 10:09] VITALS: BP 159/98; PULSE 64; TEMP 98.2
--- NOTE | 2017-12-09 14:22 | EKG ---
Test Reason : Blood Pressure : / mmHG Vent. Rate : 060 BPM Atrial Rate : 060 BPM P-R Int : 136 ms QRS Dur : 086 ms QT Int : 470 ms P-R-T Axes : -04 095 137 degrees QTc Int : 470 ms NORMAL SINUS RHYTHM RIGHTWARD AXIS PROLONGED QT ABNORMAL ECG WHEN COMPARED WITH ECG OF 08-DEC-2017 14:22, NO SIGNIFICANT CHANGE WAS FOUND Confirmed by JONA MAGAÑA MD ([id number]) on 12/09/2017 2:22:20 PM Referred By: Lakshmi HULL Confirmed By:JONA MAGAÑA MD
== END 2017-12-09 10:15 | disposition home or self-care (01) | DRG 309 ==
LOC: JASU-ENDO 11:43 → JSAMEDAYSX 15:27 → J4W 18:15
PROVIDERS: ADMIT Internal Medicine; ATTEND Hospitalist
PROC: B246ZZ4 Ultrasonography of Right and Left Heart, Transesophageal (ICD-10-PCS; principal; 2017-12-08 13:00)
DX: I48.92 Unspecified atrial flutter (principal); I31.3 Pericardial effusion (noninflammatory); I16.0 Hypertensive urgency; I12.9 Hypertensive chronic kidney disease with stage 1 through stage 4 chronic kidney disease, or unspecified chronic kidney disease; N18.9 Chronic kidney disease, unspecified; I34.0 Nonrheumatic mitral (valve) insufficiency; I27.20 Pulmonary hypertension, unspecified; I36.1 Nonrheumatic tricuspid (valve) insufficiency
CPT/HCPCS: 36415; 80053; 80061; 83721; 83735; 84100; 85027; 85610; 85730; 93005; 93010; 93312; 93325

== ENCOUNTER 2017-12-15 16:48 | Emergency (ER) | payer OTHER ==
--- NOTE | 2017-12-15 16:56 | PDOC ---
Rapid Medical Evaluation Time Seen by Provider: 12/15/17 16:51 Medical Evaluation: Allergies Allergy/AdvReac Type Severity Reaction Status Date / Time No Known Allergies Allergy Verified 12/07/17 13:58 12/15/17 16:54 Pt presents to the ED for a bump to his R hand. Pt was seen in the hospital for afib with RVR last week and was discharged. Pt states that he had an IV in the R hand during his admission and when they removed the needle he had a hematoma. States that the hand was more swollen over the week and it is getting better: Exam: 4x4 cm round fluctuant hematoma to the dorsal R hand. No evidence of infection or warmth to the hand. VSS, afebrile. PMS to the R hand intact. Radial pulses 2+ b/l. Orders: Nothing Patient to be discharged home. Pt with hematoma after hospital stay. No evidence of infection at this time. Will dc home with supportive care instructions. Discharge Disposition - Diagnosis Hematoma - Discharge Dispostion Disposition: HOME Condition at time of disposition: Good Decision to Admit order: No - Referrals Referrals: Zakia Ridley MD [Primary Care Provider] - - Patient Instructions Printed Discharge Instructions: DI for Hematoma (Bruise) Additional Instructions: You have a hematoma (bruise) to the top of your R hand. Continue with warm compresses. Use the compress for 20 minute periods at a time 5 times a day. The area will take a couple of months to completely heal. Follow up with your primary care doctor. Return to the ED if he develops fevers, chills, worsening pain in the hand, redness or warmth to the hand, or if he has any changes in his symptoms. - Post Discharge Activity
[2017-12-15 17:01] VITALS: BP 156/76; PULSE 71; TEMP 98.2; BMI 28.1
== END 2017-12-15 17:08 | disposition home or self-care (01) ==
LOC: JERFT 16:48 → JER 16:48 → JERFT 17:08
DX: S60.221A Contusion of right hand, initial encounter (principal); I48.91 Unspecified atrial fibrillation
CPT/HCPCS: 99281-25

== ENCOUNTER 2021-02-06 15:13 | Inpatient (IN) | payer OTHER ==
[2021-02-06] MEDS ORDERED: SODIUM CHLORIDE 0.9% 1000 ML INFUS.BAG IV ONE (17:13)
[2021-02-06] MEDS ORDERED: METOPROLOL TARTRATE 5 MG/5 ML VIAL IVPUSH ONE ×3 (17:19→21:08)
[2021-02-06] MEDS ORDERED: METOPROLOL TARTRATE 5 MG/5 ML VIAL ONE ×3 (17:26→21:26)
[2021-02-06] MEDS ORDERED: METOPROLOL TARTRATE 50 MG TABLET (FP) PO ONE (18:23)
[2021-02-06] MEDS ORDERED: METOPROLOL TARTRATE 50 MG TABLET (FP) ONE (18:29)
[2021-02-06 19:07] LABS: BASO % 0.4 % (0-2.0); EOS % 0.2 % (0-4.5); HEMOGLOBIN 16.1 GM/dL (11.7-16.9); LYMPH % 33.7 % (8-40); MCH 28.6 pg (25.7-33.7); MCHC 34.2 g/dl (32.0-35.9); MEAN CELL VOLUME 83.8 fl (80-96); MEAN PLT VOLUME 8.7 fl (7.5-11.1); MONO % 17.1 % (3.8-10.2); NEUT % 48.6 % (42.8-82.8); PLATELET COUNT 160 10^3/uL (134-434); RBC 5.61 M/mm3 (4.00-5.60); RDW 14.3 % (11.9-15.9); WHITE BLOOD COUNT 10.8 K/mm3 (4.0-10.0)
[2021-02-06 19:19] LABS: INR 1.3 (0.83-1.09); PROTHROMBIN TIME (PATIENT) 15.6 SEC (9.7-13.0)
[2021-02-06 20:30] LABS: N-TERMINAL BNP 3298.1 pg/ml (5-450)
[2021-02-06 20:56] LABS: CHLORIDE 100 mmol/L (98-107); SODIUM 135 mmol/L (136-145)
[2021-02-06 20:58] LABS: ALBUMIN 3.9 g/dl (3.4-5.0); ANION GAP 11 MMOL/L (8-16); BLOOD UREA NITROGEN 22.4 mg/dL (7-18); CALCIUM 8.8 mg/dL (8.5-10.1); CO2 24 mmol/L (21-32); GLUCOSE,RANDOM 101 mg/dL (74-106)
[2021-02-06 21:03] LABS: CREATININE 1.2 mg/dL (0.55-1.3); SGOT/AST 30 U/L (15-37); SGPT/ALT 23 U/L (13-61)
[2021-02-06 21:04] LABS: ALK PHOS 70 U/L (45-117); BILIRUBIN,TOTAL 0.7 mg/dL (0.2-1); TOT PROT 7.4 g/dl (6.4-8.2)
[2021-02-06] MEDS ORDERED: AZITHROMYCIN IVPB 500 MG in DEXTROSE 5%-WATER - 250 ML IVPB ONE (21:09)
[2021-02-06] MEDS ORDERED: CEFTRIAXONE 1,000 MG in DEXTROSE 5%-WATER - 50 ML IVPB ONE (21:10)
[2021-02-06] MEDS ORDERED: CEFTRIAXONE 1 GM/50 ML BAG ONE (21:26)
[2021-02-06] MEDS ORDERED: AZITHROMYCIN IVPB 500 MG/250 ML BAG IVPB ONE (21:26)
[2021-02-07] MEDS ORDERED: METOPROLOL TARTRATE 5 MG/5 ML VIAL IVPUSH ONE (02:41)
[2021-02-07 08:27] LABS: HEMATOCRIT 43.9 % (35.4-49); HEMOGLOBIN 15.3 GM/dL (11.7-16.9); MCH 29.2 pg (25.7-33.7); MCHC 34.8 g/dl (32.0-35.9); MEAN CELL VOLUME 83.7 fl (80-96); PLATELET COUNT 172 10^3/uL (134-434); RBC 5.25 M/mm3 (4.00-5.60); RDW 14.8 % (11.9-15.9); WHITE BLOOD COUNT 12.1 K/mm3 (4.0-10.0)
[2021-02-07 08:36] LABS: CHLORIDE 101 mmol/L (98-107); SODIUM 134 mmol/L (136-145)
[2021-02-07 08:42] LABS: ALBUMIN 3.4 g/dl (3.4-5.0); CALCIUM 8.2 mg/dL (8.5-10.1)
[2021-02-07 08:43] LABS: ANION GAP 7 MMOL/L (8-16); BLOOD UREA NITROGEN 26.7 mg/dL (7-18); CO2 26 mmol/L (21-32); GLUCOSE,RANDOM 90 mg/dL (74-106); MAGNESIUM 2.4 mg/dL (1.8-2.4)
[2021-02-07 08:45] LABS: CHOLESTEROL 180 mg/dL (50-200); CREATININE 1.3 mg/dL (0.55-1.3); SGOT/AST 26 U/L (15-37); SGPT/ALT 22 U/L (13-61)
[2021-02-07 08:46] LABS: BILIRUBIN,TOTAL 0.6 mg/dL (0.2-1); PHOSPHOROUS 3.9 mg/dL (2.5-4.9); TRIGLYCERIDES 98 mg/dL (0-150)
[2021-02-07 08:47] LABS: LDL CHOLESTEROL (ONLY SJRH) 114 mg/dL (5-100); TOT PROT 6.4 g/dl (6.4-8.2)
[2021-02-07 08:49] LABS: ALK PHOS 61 U/L (45-117); HDL CHOLESTEROL 39 mg/dL (40-60)
[2021-02-07] MEDS ORDERED: METOPROLOL TARTRATE 5 MG/5 ML VIAL IVPUSH PRN (09:47)
[2021-02-07] MEDS ORDERED: PIPERACILLIN/TAZOB 3.375 GM 3.375 GM in DEXTROSE 5%-WATER - 50 ML IVPB SCH (10:00)
[2021-02-07] MEDS ORDERED: PIPERACILLIN/TAZOB 3.375 GM 3.375 GM/50 ML BAG IVPB SCH (10:00)
[2021-02-07] MEDS ORDERED: AZITHROMYCIN IVPB 250 MG/125 ML BAG IVPB SCH (10:00)
[2021-02-07 10:39] LABS: ANISOCYTOSIS 3+; MACROCYTOSIS 0; PLATELET ESTIMATE NORMAL
[2021-02-07] MEDS ORDERED: APIXABAN 5 MG TABLET ONE (11:20)
[2021-02-07] MEDS ORDERED: PIPERACILLIN/TAZOB 3.375 GM 3.375 GM/50 ML BAG IVPB ONE (11:21)
[2021-02-07] MEDS ORDERED: AZITHROMYCIN IVPB 500 MG/250 ML BAG IVPB ONE (11:21)
[2021-02-07] MEDS ORDERED: PT OWN MED DRAWER 7, Y5N ONE (11:22)
[2021-02-07] MEDS ORDERED: CEFTRIAXONE 1 GM/50 ML BAG ONE ×2 (11:26→16:52)
[2021-02-07] MEDS ORDERED: DOXYCYCLINE HYCLATE 100 MG VIAL ONE ×2 (11:26→21:34)
[2021-02-07] MEDS ORDERED: LOSARTAN POTASSIUM 50 MG TABLET ONE (11:26)
[2021-02-07] MEDS: APIXABAN 5 MG TABLET PO SCH ×2 (11:49→22:08)
[2021-02-07] MEDS: LOSARTAN POTASSIUM 50 MG TABLET PO SCH (11:49)
[2021-02-07] MEDS: DOXYCYCLINE INJECTION 100 MG in DEXTROSE 5%-WATER 100 ML IVPB SCH ×2 (11:49→22:08)
[2021-02-07] MEDS: METOPROLOL TARTRATE 50 MG TABLET (FP) PO SCH ×2 (11:50→22:07)
[2021-02-07 12:13] LABS: EPI CELLS 1 /uL (0-25.1); HYALINE CASTS 7 /uL (0-3.1); PH,URINE 5.5 (5.0-8.0); URINE APPEARANCE CLOUDY; URINE BACTERIA 160 /uL (0-1359); URINE BILIRUBIN NEGATIVE (NEGATIVE); URINE COLOR YELLOW; URINE GLUCOSE (UA) NEGATIVE (NEGATIVE); URINE KETONE TRACE (NEGATIVE); URINE LEUK ESTERASE 2+ (NEGATIVE); URINE NITRITE NEGATIVE (NEGATIVE); URINE PROTEIN NEGATIVE (NEGATIVE); URINE RBC 18 /uL (0-23.9); URINE UROBILINOGEN 0.2 mg/dL (0.2-1.0); URINE WBC 528 /uL (0-25.8)
[2021-02-07] MEDS ORDERED: dilTIAZem HCL 60 MG TABLET ONE (13:41)
[2021-02-07] MEDS ORDERED: FUROSEMIDE 40 MG/4 ML INJECTABLE VIAL ONE (13:41)
[2021-02-07] MEDS ORDERED: LEVALBUTEROL HCL 0.31 MG/3 ML VIAL.NEB IH PRN (14:05)
[2021-02-07] MEDS ORDERED: METOPROLOL TARTRATE 5 MG/5 ML VIAL ONE (14:12)
[2021-02-07] MEDS: dilTIAZem HCL 60 MG TABLET PO SCH ×2 (15:23→22:07)
[2021-02-07] MEDS: FUROSEMIDE 40 MG/4 ML INJECTABLE VIAL IVPUSH SCH (15:23)
[2021-02-07] MEDS: METOPROLOL TARTRATE 5 MG/5 ML VIAL IVPUSH PRN (15:30)
[2021-02-07] MEDS: CEFTRIAXONE 1 GM in DEXTROSE 5%-WATER - 50 ML IVPB SCH (17:03)
[2021-02-07 21:05] VITALS: BMI 27.6
[2021-02-07] MEDS ORDERED: DEXTROSE 5%-WATER 100 ML IVPB ONE (21:34)
[2021-02-08] MEDS: FUROSEMIDE 40 MG/4 ML INJECTABLE VIAL IVPUSH SCH (06:18)
[2021-02-08] MEDS: dilTIAZem HCL 60 MG TABLET PO SCH (06:18)
[2021-02-08 07:58] LABS: HEMATOCRIT 43.9 % (35.4-49); HEMOGLOBIN 15.2 GM/dL (11.7-16.9); MCH 29.1 pg (25.7-33.7); MCHC 34.6 g/dl (32.0-35.9); MEAN CELL VOLUME 84.1 fl (80-96); PLATELET COUNT 173 10^3/uL (134-434); RBC 5.21 M/mm3 (4.00-5.60); RDW 14.8 % (11.9-15.9)
[2021-02-08 08:23] LABS: BLOOD UREA NITROGEN 32.8 mg/dL (7-18); CALCIUM 8.6 mg/dL (8.5-10.1)
[2021-02-08 08:26] LABS: CREATININE 1.3 mg/dL (0.55-1.3)
[2021-02-08] MEDS ORDERED: DEXTROSE 5%-WATER 100 ML IVPB ONE ×2 (09:14→21:39)
[2021-02-08] MEDS ORDERED: DEXTROSE 5%-WATER - 50 ML IVPB ONE (09:14)
[2021-02-08] MEDS ORDERED: DOXYCYCLINE HYCLATE 100 MG VIAL ONE ×2 (09:14→21:39)
[2021-02-08] MEDS ORDERED: cefTRIAXone SODIUM 1 GM VIAL ONE (09:14)
[2021-02-08] MEDS: APIXABAN 5 MG TABLET PO SCH ×2 (09:30→21:58)
[2021-02-08] MEDS: LOSARTAN POTASSIUM 50 MG TABLET PO SCH (09:30)
[2021-02-08] MEDS: DOXYCYCLINE INJECTION 100 MG in DEXTROSE 5%-WATER 100 ML IVPB SCH ×2 (09:31→22:05)
[2021-02-08] MEDS: CEFTRIAXONE 1 GM in DEXTROSE 5%-WATER - 50 ML IVPB SCH (09:31)
[2021-02-08] MEDS: AMIODARONE HCL 200 MG TABLET PO SCH ×2 (13:37→21:58)
[2021-02-08] MEDS: METOPROLOL TARTRATE 5 MG/5 ML VIAL IVPUSH PRN (18:28)
[2021-02-09 07:47] LABS: BASO % 0.6 % (0-2.0); EOS % 1.4 % (0-4.5); HEMATOCRIT 43.3 % (35.4-49); HEMOGLOBIN 14.8 GM/dL (11.7-16.9); LYMPH % 54.8 % (8-40); MCH 28.6 pg (25.7-33.7); MCHC 34.2 g/dl (32.0-35.9); MEAN CELL VOLUME 83.5 fl (80-96); MEAN PLT VOLUME 8.6 fl (7.5-11.1); MONO % 10.7 % (3.8-10.2); NEUT % 32.5 % (42.8-82.8); PLATELET COUNT 209 10^3/uL (134-434); RBC 5.18 M/mm3 (4.00-5.60); RDW 14.5 % (11.9-15.9); WHITE BLOOD COUNT 12.2 K/mm3 (4.0-10.0)
[2021-02-09 07:56] LABS: CALCIUM 8.5 mg/dL (8.5-10.1)
[2021-02-09 07:57] LABS: BLOOD UREA NITROGEN 30.6 mg/dL (7-18); MAGNESIUM 2.2 mg/dL (1.8-2.4)
[2021-02-09 07:59] LABS: CREATININE 1.3 mg/dL (0.55-1.3)
[2021-02-09 08:00] LABS: PHOSPHOROUS 3.1 mg/dL (2.5-4.9)
[2021-02-09] MEDS ORDERED: cefTRIAXone SODIUM 1 GM VIAL ONE (08:34)
[2021-02-09] MEDS ORDERED: DEXTROSE 5%-WATER - 50 ML IVPB ONE (08:35)
[2021-02-09] MEDS: APIXABAN 5 MG TABLET PO SCH (09:21)
[2021-02-09] MEDS: AMIODARONE HCL 200 MG TABLET PO SCH (09:22)
[2021-02-09] MEDS: LOSARTAN POTASSIUM 50 MG TABLET PO SCH (09:22)
[2021-02-09] MEDS: CEFTRIAXONE 1 GM in DEXTROSE 5%-WATER - 50 ML IVPB SCH (09:23)
[2021-02-09] MEDS ORDERED: DOXYCYCLINE HYCLATE 100 MG VIAL ONE (09:49)
[2021-02-09] MEDS ORDERED: DEXTROSE 5%-WATER 100 ML IVPB ONE (09:49)
[2021-02-09] MEDS ORDERED: FUROSEMIDE 40 MG TABLET (FP) PO SCH (10:00)
[2021-02-09] MEDS: DOXYCYCLINE INJECTION 100 MG in DEXTROSE 5%-WATER 100 ML IVPB SCH (10:30)
[2021-02-09 13:34] VITALS: BP 130/78; PULSE 78; TEMP 98.1
== END 2021-02-09 15:49 | disposition home or self-care (01) | DRG 194 ==
LOC: JER 15:13 → JERBED 23:04 → J4W 02-07 20:00
PROVIDERS: ADMIT Internal Medicine; ATTEND Internal Medicine
DX: J18.9 Pneumonia, unspecified organism (principal); I13.0 Hypertensive heart and chronic kidney disease with heart failure and stage 1 through stage 4 chronic kidney disease, or unspecified chronic kidney disease; I50.42 Chronic combined systolic (congestive) and diastolic (congestive) heart failure; I48.0 Paroxysmal atrial fibrillation; I10 Essential (primary) hypertension; E78.00 Pure hypercholesterolemia, unspecified; I27.20 Pulmonary hypertension, unspecified; I25.119 Atherosclerotic heart disease of native coronary artery with unspecified angina pectoris; I08.1 Rheumatic disorders of both mitral and tricuspid valves; N18.9 Chronic kidney disease, unspecified
CPT/HCPCS: 36415; 71250-TC; 80048; 80053; 80061; 81003; 82550; 82553; 83735; 83880; 84100; 84436; 84443; 84484; 85025; 85027; 85610; 85730; 87040; 87070; 87086; 87205; 87899; 93005; 93010; 99285-25; C9803; U0003; U0005

== ENCOUNTER 2022-06-22 04:15 | Day surgery (SDC) | payer OTHER ==
[2022-06-19 11:55] VITALS: BMI 29.1
[2022-06-22 12:52] VITALS: TEMP 97.5
[2022-06-22 13:55] VITALS: BP 150/93; PULSE 73; RESP 18
== END 2022-06-22 13:40 | disposition home or self-care (01) ==
LOC: JASU-ENDO 04:15
PROVIDERS: ATTEND Internal Medicine Cardiovascular Disease
PROC: 5A2204Z Restoration of Cardiac Rhythm, Single (ICD-10-PCS; principal; 2022-06-22 12:00)
DX: I48.91 Unspecified atrial fibrillation (principal)
CPT/HCPCS: 92960; 93005; 93010